=== PATIENT | female | born 1955 | race African-American/Black ===

== ENCOUNTER → 2018-03-14 | Day surgery (SDC) | payer OTHER ==
[~2018-03-14] MED LIST: ACETAMINOPHEN325 M1 PEG; ACETAMINOPHEN325 M1 PO; AMIODARONE HCL200 MG PO; ARANESP40 MCG/1 M IV; ASCORBIC ACID500 MG PEG; BARRIER CREAM TOP; CATHFLO ACTIVASE2 MG IV; COLLAGENASE1 EACH TOP; COMBIVENT RESPIM4 GM IH; CUBICIN500 MG/VIA IV; ENOXAPARIN40 MG/0.4 SC; FAMOTIDINE20 MG PO; FENTANYL CITRATE/PF 100MCG/2 ML INJ ONE; GUAIFENESI100 MG/5 M PEG; HEPARIN SOD (PORCINE) 1000 UNIT/ML 30ML ONE; HYDRALAZINE HCL10 MG IV; LEVEMIR100 UNIT/1 SQ; LIDOCAINE HCL 2% LOCAL 20 ML VIAL ONE; LORAZEPAM2 MG/1 M1 IVP; MIDAZOLAM HCL 2 MG/2 ML VIAL ONE; MORPHINE SULF1 MG/ML IV; NEPRO PEG; NOVOLOG100 UNIT/1; POLYETHYLENE G500 GM PEG; QUESTRAN PACKET4 GM PO; RENVELA0.8 GM PO; RIFAMPIN300 MG PEG; SODIUM CHLORIDE 0.9% 500ML 500 ML ONE; TRADJENTA5 MG PEG; TRANSDERM-SCOP1 EACH TOP; TRAZODONE HCL50 MG PO; ULTRAM50 MG PO; VALPROIC A250 MG/5 M PO; VITAMIN RENAL PO; ZOFRAN ODT4 MG PEG
[2018-03-14 14:51] VITALS: BP 108/61
--- NOTE | 2018-03-23 15:06 | Diagnostic Imaging Report ---
Date and Time: 03/14/2018 Procedure: 1. Thoracic venogram 2. 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 Castaneda Pre-operative diagnosis: End-stage renal disease Post-operative diagnosis: 1. End-stage renal disease 2. Chronically occluded right internal jugular vein 3. 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 Patent superior vena cava. Conscious Sedation: Versed 1.5 mg and Fentanyl 75 mcg. The patient's heart rate and pulse oximetry were continuously monitored by the interventional radiology nurse. Blood pressure was monitored at 5 minute intervals. Additional Medications: Lidocaine 1% for local anesthesia Fluoroscopy time: 4.0 minutes Dose-area Product: 526.5 cGycm2. Contrast used: 15 cc Isovue-370 Estimated blood loss: Less than 10 cc Specimens: None Implants: 16 [place], 19 cm- tip-cuff tunneled hemodialysis catheter Condition at completion of procedure: Stable Disposition: Returned to care facility DISCUSSION: Informed consent was obtained from the next of kin and documented in the medical record. The patient was placed in the supine position on the fluoroscopic table. Preliminary sonographic evaluation showed a chronically occluded right internal jugular vein with a patent right external jugular vein. A suitable percutaneous approach to the external jugular vein was identified and the right neck and upper chest were prepped and draped in the standard sterile fashion, to include the external portion of the right subclavian high flow central venous catheter. 1% lidocaine was infiltrated into the skin and subcutaneous tissues for local anesthesia. Then under continuous sonographic guidance, a 21-gauge micropuncture needle was used to access the right external jugular vein. A 0.0 1 8-in. wire was advanced to the level of the brachiocephalic venous confluence at which point resistance was encountered. The needle was exchanged for a micropuncture sheath and thoracic venogram was performed. A 0.0 3 5-in. hydrophilic wire was advanced through the sheath, across the stenotic segment of brachiocephalic vein, and ultimately into the inferior vena cava. The sheath was exchanged for an angled catheter and a Glidewire was then exchanged for a 0.0 3 5-in. Amplatz Super Stiff wire. A suitable tunnel exit site was identified on the right upper chest. Of note, the presence of an indwelling subclavian catheter necessitated a more medial tunneled catheter exit site than anticipated. 1% lidocaine was infiltrated into the skin and subcutaneous tissues spanning the planned exit site and the venotomy at the right lower neck. A stab incision was made. The catheter was tunneled from the upper chest to the lower neck, with the retention cuff advanced well into the subcutaneous tunnel. The densely fibrotic subcutaneous tract was serially dilated. A 16.5 [place] peel-away sheath was then advanced over the wire under fluoroscopic guidance. The wire and dilator of the peel-away sheath were removed and the catheter was then advanced through the sheath, which was subsequently broken and discarded. The catheter was positioned with the tip in the upper right atrium. Each lumen was tested and showed adequate bidirectional flow. Each lumen of the catheter was packed with 2500 units of heparin. The catheter was secured to the skin with monofilament nylon suture and a sterile dressing was applied. The patient tolerated the procedure without immediate complication. FINDINGS: 1. Chronically occluded right internal jugular vein 2. Patent right external jugular vein. 3. Thoracic venogram reveals a severe stenosis of the right brachiocephalic vein with a patent superior vena cava. IMPRESSION: 1. Successful thoracic venogram. 2. Successful placement of a 16 [place], 19 cm tip-cuff tunneled hemodialysis catheter by a right external jugular venous approach. Signed by: Dr. Collins Castaneda M.D. on 03/16/2018 9:14 AM
== END | disposition home or self-care (01) ==
LOC: EDSTATUS 11:00 → CATH LAB 11:43
PROVIDERS: ATTEND Radiology Diagnostic Radiology
DX: E11.22 Type 2 diabetes mellitus with diabetic chronic kidney disease (principal); I12.0 Hypertensive chronic kidney disease with stage 5 chronic kidney disease or end stage renal disease; N18.6 End stage renal disease; I82.C21 Chronic embolism and thrombosis of right internal jugular vein; I87.8 Other specified disorders of veins; J44.9 Chronic obstructive pulmonary disease, unspecified; I69.854 Hemiplegia and hemiparesis following other cerebrovascular disease affecting left non-dominant side; I48.91 Unspecified atrial fibrillation; I95.9 Hypotension, unspecified; D64.9 Anemia, unspecified; Z93.1 Gastrostomy status; Z99.2 Dependence on renal dialysis; Z79.4 Long term (current) use of insulin; Z86.14 Personal history of Methicillin resistant Staphylococcus aureus infection
CPT/HCPCS: 36558; 75820; C1750; C1751; C1769 ×2; J1644; J2001; J2250; J7040; 36565; 77001